=== PATIENT | male | born 1970 | race Caucasian/White ===

== ENCOUNTER 2018-06-18 08:11 | Day surgery (SDC) | payer OTHER ==
[2018-06-10 16:43] VITALS: BMI 25.4
[2018-06-18] MEDS ORDERED: ROPIVACAINE HCL 0.5% 30ML VIAL ONE (11:45)
[2018-06-18] MEDS ORDERED: MIDAZOLAM HCL 2 MG/2 ML SINGLE DOSE VIAL ONE (11:45)
[2018-06-18] MEDS ORDERED: DEXAMETHASONE SOD PHOSPHATE/PF 10 MG/ML SDV ONE (11:45)
[2018-06-18] MEDS ORDERED: ceFAZolin SODIUM 1 GM VIAL IVPB ONE (13:48)
[2018-06-18] MEDS ORDERED: ceFAZolin SODIUM 1 GM VIAL ONE (13:51)
[2018-06-18] MEDS ORDERED: ONDANSETRON 4 MG/2 ML VIAL ONE (13:51)
[2018-06-18] MEDS ORDERED: DEXAMETHASONE SOD PHOSPHATE 4 MG/1 ML VIAL ONE (13:51)
[2018-06-18] MEDS ORDERED: PROPOFOL 20 ML ONE (14:50)
--- NOTE | 2018-06-18 15:04 | OP ---
Operative Note - Note: Operative Date: 06/18/18 Pre-Operative Diagnosis: Right shoulder impingement syndrome Operation: Right shoulder open: 1. Neer decompression. 2. Harvinder procedure Post-Operative Diagnosis: Same as Pre-op Surgeon: Jamal Osman Pattern Designer: Tramaine Osman Anesthesiologist/CERTIFIED PROFESSIONAL MIDWIFE: Yolis García Anesthesia: Local (Interscalene block) Estimated Blood Loss (mls): 25 Fluid Volume Replaced (mls): 300 Operative Report Dictated: Yes
[2018-06-18 15:37] VITALS: TEMP 97.9
[2018-06-18] MEDS ORDERED: BENZOIN TINCTURE SWABSTICK TP ONE (15:37)
[2018-06-18 16:34] VITALS: BP 150/90; PULSE 75
--- NOTE | 2018-06-19 07:13 | OP ---
DATE OF OPERATION: 06/18/2018 SURGEON: Jamal Osman MD TESTING AND REGULATING CHIEF: Tramaine Osman MD ANESTHESIA: Conscious sedation with scalene block. PREOPERATIVE DIAGNOSIS: Right shoulder rotator cuff impingement syndrome with rotator cuff tear. POSTOPERATIVE DIAGNOSIS: Right shoulder rotator cuff impingement syndrome with rotator cuff tear. OPERATION PERFORMED: 1. Harvinder excision arthroplasty, clavicle. 2. Acromioplasty with transection of coracoacromial ligament. 3. Small repair of rotator cuff. POSITION: Beach-chair Traore position. ANTIBIOTICS GIVEN: Kefzol 2 g preoperatively. OPERATION IN DETAIL: The patient in the supine position, almost 60 degrees, with head up, the right upper extremity was prepped with Betadine scrub solution, wiped with alcohol, DuraPrep applied, and a free drape applied. An incision was made from the tip of the acromion to the tip coracoid process, and the lines of Thierry. The dissection was taken through the subcutaneous tissue to the muscle to the clavicle. At the clavicle, the superior surface was identified by removing the soft tissue with Bovie off the actual bone bed. The AC joint was noted, and a Hohmann was placed distally in the clavicle to keep the distal end of the clavicle out of harms way. A 1-cm excision arthroplasty performed with an oscillating saw, beveled inwards accordingly. Once this had been performed, the deltoid and plane between the deltoid and the CA ligament was identified. This was gently [facility]. The CA ligament was transected with a 15 blade knife, and using Metzenbaum scissors, this transection was extended proximally as well as distally into the proximal area of the humeral head and neck region. This freed the entire rotator cuff. With finger dissection, pulling the arm distally that is in axillary line force, the subacromial space was entered, adhesions broken down. A blunt Hohmann was placed in the undersurface of the acromion leaving the humeral head downwards, and a beveled excision in the plane parallel to the acromion was performed to raise the root of the shoulder joint and remove the anterior impinging beak of acromion noted. Once this had been performed, the tissues were lavaged, the rotator cuff was carefully inspected by placing the arm in full range of movement. This was all under direct vision. A small tear was noted and repaired with No. 1 Vicryl suture. Closure muscle capsule 1 Vicryl, subcutaneous 1 and 2-0 Vicryl, skin with 3-0 Monocryl with Steri-Strips. Operation went well. No complications. Sling was applied. MD MARGARETH Fagan/[id number]
[2018-06-19] MEDS ORDERED: LISINOPRIL 20 MG TABLET (FP) PO SCH (10:00)
[2018-06-19] MEDS ORDERED: VERAPAMIL HCL 180 MG E.R. TABLET (FP) PO SCH (10:00)
--- NOTE | 2018-06-25 14:25 | PATH ---
Surgical Pathology Report Patient Name: MARIA DEL CARMEN SOLIS Med. Rec. #: [id number] /Age/Gender: 1970 (Age: 47) / M Account: [id number] Location: [facility] AMBULATORY Taken: 06/18/2018 Received: 06/18/2018 Reported: 06/23/2018 Physicians: Jamal Osman M.D. Specimen(s) Received DISTAL CLAVICLE RIGHT SHOULDER Clinical History Impingement syndrome right shoulder Final Diagnosis SHOULDER, DISTAL CLAVICLE, RIGHT, NEER DECOMPRESSION AND GENET PROCEDURE: BONE WITH DEGENERATIVE CHANGES. BONE MARROW WITH TRILINEAGE HEMATOPOIESIS. Electronically Signed Niurka Black M.D. Gross Description Received in formalin labeled "distal clavicle right shoulder," is a 2.5 x 1.9 x 1.2 cm portion of bone. Also received within the same container is a 2.0 x 2.0 x 0.4 cm aggregate of molina-yellow portions of soft tissue. [employer] sections are submitted in one cassette, following decalcification. /06/22/2018 [facility]06/22/2018
== END 2018-06-18 16:30 | disposition home or self-care (01) ==
LOC: FASU 08:11
PROVIDERS: ATTEND Orthopaedic Surgery Orthopaedic Surgery of the Spine
PROC: 0MN10ZZ Release Right Shoulder Bursa and Ligament, Open Approach (ICD-10-PCS; 2018-06-18)
PROC: 0LQ10ZZ Repair Right Shoulder Tendon, Open Approach (ICD-10-PCS; 2018-06-18)
PROC: 0PB90ZZ Excision of Right Clavicle, Open Approach (ICD-10-PCS; principal; 2018-06-18 14:15)
DX: M75.41 Impingement syndrome of right shoulder (principal); M75.111 Incomplete rotator cuff tear or rupture of right shoulder, not specified as traumatic
CPT/HCPCS: 88304-TC; 88311-TC